=== PATIENT | male | born 1955 ===

== ENCOUNTER 2017-04-01 09:00 | Emergency (ER) | payer MEDICAID ==
--- NOTE | 2017-04-01 09:14 | UC ---
Skin Complaint HPI - HPI Summary HPI Summary: 61 yo male presents here with concerns he has scabies - History of Current Complaint Chief Complaint: UCRash Time Seen by Provider: 04/01/17 09:13 Stated Complaint: SKIN ISSUE Hx Obtained From: Patient Onset/Duration: Gradual Onset, Lasting Days Onset Severity: Mild Current Severity: Mild Pain Intensity: 0 Pain Scale Used: 0-10 Numeric Location: Other - trunk Character: Pruritus, Redness, Raised Aggravating: Nothing Alleviating: Nothing Associated Signs & Symptoms: Positive: Rash - Allergy/Home Medications Allergies/Adverse Reactions: Allergies Allergy/AdvReac Type Severity Reaction Status Date / Time No Known Allergies Allergy Verified 04/01/17 09:07 Review of Systems Constitutional: Negative Skin: Rash Eyes: Negative ENT: Negative Respiratory: Negative Cardiovascular: Negative Gastrointestinal: Negative Genitourinary: Negative Motor: Negative Neurovascular: Negative Musculoskeletal: Negative Neurological: Negative Psychological: Negative All Other Systems Reviewed And Are Negative: Yes PMH/Surg Hx/FS Hx/Imm Hx Previously Healthy: Yes - Surgical History Surgical History: None - Family History Known Family History: Positive: Hypertension - Social History Alcohol Use: Occasionally Substance Use Type: None Smoking Status (MU): Heavy Every Day Tobacco Smoker Type: Cigarettes Amount Used/How Often: 1ppd Physical Exam Triage Information Reviewed: Yes Appearance: Well-Appearing, No Pain Distress, Well-Nourished Vital Signs: Initial Vital Signs Temp 98.1 F 04/01/17 09:01 Pulse 74 04/01/17 09:01 Resp 16 04/01/17 09:01 BP 151/93 04/01/17 09:01 Pulse Ox 100 04/01/17 09:01 Eye Exam: Normal ENT: Positive: Hearing grossly normal. Negative: Nasal congestion, Nasal drainage, Trismus, Muffled/hoarse voice Neck exam: Normal Respiratory: Positive: Lungs clear, Normal breath sounds, No respiratory distress, No accessory muscle use Cardiovascular: Positive: RRR, No Murmur Musculoskeletal: Positive: ROM Intact, No Edema Neurological: Positive: Alert Psychological Exam: Normal Skin Exam: Other - sewe isreal Skin: Positive: rashes Course/Dx - Course Course Of Treatment: pt declines rx for contact derm. declines f/u for BP. just wants lidane - Diagnoses Provider Diagnoses: rash-? scabies. contact dermatitis. elevated BP Discharge - Discharge Plan Condition: Stable Disposition: HOME Prescriptions: [place] LOTION* [Kwell Lotion*] 1 applic TOPICAL SEE INSTRUCTIONS #60 ml Patient Education Materials: Scabies (ED) Referrals: Non Staff,Doctor [Primary Care Provider] - Additional Instructions: recheck for new or worsening symptoms Images Front/Back of Body, Lg ([place]): 1 - rash c/w contact derm 2 - papules /scabs that could be scabies
[2017-04-01 09:22] VITALS: BP 151/93
== END 2017-04-01 09:37 | disposition home or self-care (01) ==
LOC: UCEAST 09:00
DX: M54.9 Dorsalgia, unspecified (principal); Z88.5 Allergy status to narcotic agent; F12.90 Cannabis use, unspecified, uncomplicated; Z72.0 Tobacco use
CPT/HCPCS: 99202; G0463